=== PATIENT | female | born 1965 | race Two or more races ===

== ENCOUNTER 2019-01-23 22:46 | Emergency (ER) | payer MEDICARE ==
[~2019-01-23] VITALS: Ht 160 cm; Wt 54.4 kg
[2019-01-23] MEDS ORDERED: HYDMOR2 (23:21)
[2019-01-24] MEDS ORDERED: Ativan1 MG PO (00:10)
== END 2019-01-24 00:23 | disposition home or self-care (01) ==
LOC: ER 22:46
DX: F41.9 Anxiety disorder, unspecified (principal); Z88.6 Allergy status to analgesic agent; Z88.8 Allergy status to other drugs, medicaments and biological substances
CPT/HCPCS: 96374; 99282-25; J2060